=== PATIENT | male | born 1990 | race Caucasian/White ===

== ENCOUNTER 2021-11-02 10:43 | Emergency (ER) | payer SELFPAY ==
--- NOTE | ~2021-11-02 | XR_ITS ---
EXAMINATION: XR foot RT min 3V DATE: 11/02/2021 11:36 INDICATION: Right foot pain TECHNIQUE: Dorsoplantar, lateral, and oblique views of the right foot were obtained. COMPARISON: None. FINDINGS: No foot fracture is identified. Heterotopic ossification projecting lateral to the calcaneu s and talus likely reflects an accessory ossicle. 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 The soft tissues are unremarkable. IMPRESSION: 1. No acute osseous abnormality. Reviewed, dictated and finalized at location A.
--- NOTE | ~2021-11-02 | XR_ITS ---
EXAMINATION: XR ankle RT min 3V DATE: 11/02/2021 11:36 INDICATION: Right ankle pain TECHNIQUE: Anteroposterior, lateral, mortise, and additional oblique view of the ankle were obtained. COMPARISON: None. FINDINGS: Subtle heterotopic ossification is seen distal to the lateral malleolus. Bone alignment is normal. The ankle mortise is intact. A posterior calcaneal enthesophyte is noted. IMPRESSION: 1. Subtle heterotopic ossification distal to the lateral malleolus which could reflect avulsion injur y. Correlate for tenderness at this site. Reviewed, dictated and finalized at location A. IMPRESSION: 1. Subtle heterotopic ossification distal to the lateral malleolus which could reflect avulsion injury. Correlate for tenderness at this site.
[2021-11-02 10:57] VITALS: BP 125/99; PULSE 89; TEMP 36.7; O2SAT 95
[2021-11-02 11:01] VITALS: BP 138/86; PULSE 89; RESP 19; TEMP 36.8; O2SAT 98
[2021-11-02 11:03] VITALS: BP 138/86; RESP 19; TEMP 36.8; O2SAT 98
--- NOTE | 2021-11-02 11:05 | ED.LOWEXIN ---
HPI - Extremity Injury (Lower) General Chief Complaint: Extremity Injury, Lower Stated Complaint: R FOOT PAIN Time Seen by Provider: 11/02/21 11:05 Source: patient Mode of arrival: wheelchair History of Present Illness HPI Narrative: 31-year-old male, smoker with no significant past medical history presents to the ER after he twisted his right ankle at 9:00 a.m. He complains of -- pain in his right foot around the lateral malleolus -- pain right ankle. He is unable to put weight on his right lower extremity. MD complaint: knee injury and foot injury Onset (ago): hour(s) ( 2 hours ago) Injury: Right: ankle and foot Type of Injury: inversion Place: street/outdoors Severity: moderate Relieving factors: nothing Exacerbating factors: nothing Context: other ( twisted his right ankle while walking on uneven ground) Associated symptoms: snap/pop sensation Other symptoms: none Related Data Home Medications Medication Instructions Recorded Confirmed No Home Medications 11/02/21 11/02/21 Allergies Allergy/AdvReac Type Severity Reaction Status Date / Time Penicillins Allergy Unknown Verified 11/02/21 11:02 Review of Systems Review of Systems: All systems reviewed & are unremarkable except as noted in HPI and below Constitutional: Constitutional: Reports as per HPI and Reports no additional constitutional complaints Eyes: Eyes: Reports as per HPI and Reports no additional eye complaints ENT: Reports system reviewed and no additional complaints, except as documented and Reports as per HPI Cardiovascular: Cardiovascular: Reports as per HPI and Reports no additional cardiovascular complaints Respiratory: Respiratory: Reports as per HPI and Reports no additional respiratory complaints Gastrointestinal: Gastrointestinal: Reports as per HPI and Reports no additional gastrointestinal complaints Genitourinary: Genitourinary: Reports no additional male genitourinary complaints and Reports as per HPI Musculoskeletal: Musculoskeletal: Reports no additional musculoskeletal complaints, Reports as per HPI and Reports arthralgias Comments: right ankle and foot pain. Integumentary/Breasts: Skin/Breast: Reports system reviewed and no additional complaints, except as docu and Reports as per HPI Neurologic: Reports system reviewed and no additional complaints, except as documented Psychiatric: Psychiatric: Reports no additional psychiatric complaints and Reports as per HPI Endocrine: Endocrine: Reports no additional endocrine complaints and Reports as per HPI Hematologic/Lymphatic: Hematologic/Lymphatic: Reports no additional hematologic/lymphatic complaints and Reports as per HPI Allergic/Immunologic: Allergic/Immunologic: Reports no additional allergic/immunologic complaints and Reports as per HPI Exam Const: General: healthy appearing, no acute distress and alert Limitations: no limitations HENMT: Head: normal to inspection Ears: external ears normal and TM's normal bilaterally ( Bilateral tympanic membranes are scarred.) General nose exam: Normal external nose present Face and sinus: normal facial exam Mouth: Yes Normal oral and palatal mucosa present Throat: posterior oropharynx normal Eyes: Conjunctivae: conjunctivae normal Pupils: Equal, round and reactive pupils present EOM: EOMs intact bilaterally Neck: Neck: normal visual inspection, no lymphadenopathy and no meningeal signs Chest: Chest palpation & inspection: normal inspection of the chest Resp: Auscultation: diminished lung sounds Cardio: Rate: regular rate Rhythm: regular rhythm Heart sounds: Murmur heart sound present GI: GI Palp: Yes Soft to palpation Auscultation: normal bowel sounds Other: No tenderness/ rigidity / rebound. : General: Yes bladder normal to palpation Male General Exam: Yes normal external exam Back/Spine/Pelvis: Back: no CVA tenderness Skin: General skin exam: normal color Rashes: no rashes Wounds: no wounds
[2021-11-02] MEDS: KETOROLAC 30 MG/ML VIAL (*BKC) IM (11:37)
[2021-11-02 12:51] VITALS: BP 126/84; PULSE 88; RESP 16; O2SAT 99
== END 2021-11-02 12:53 | disposition home or self-care (01) ==
PROVIDERS: Emergency Provider Internal Medicine Critical Care Medicine
DX: S82.891A Other fracture of right lower leg, initial encounter for closed fracture (principal); S93.401A Sprain of unspecified ligament of right ankle, initial encounter
CPT/HCPCS: 29515; 73610; 73630; 96372; 99284; J1885; L4350